=== PATIENT | female | born 1955 | race Caucasian/White ===

== ENCOUNTER 2022-05-06 01:21 | Day surgery (SDC) | payer MEDICARE, OTHER, SELFPAY ==
[2022-04-17 11:50] VITALS: BMI 29.2
--- NOTE | 2022-04-21 11:38 | PC.NURSE ---
Pt. cardiac and cva history reviewed with Dr. Cedillo, anesthesia. No orders received.
--- NOTE | 2022-04-21 14:38 | PM.HPGS ---
History of Present Illness History of Present Illness Consent: Risks, benefits, and alternatives have been discussed and questions answered. Patient agrees to proceed with procedure. Chief complaint: duodenal ulcer, ulcerative colitis,rectal bleeding Narrative: Hawk Hagen is a 66 year old female who was referred by her PCP for ulcerative colitis. She has past medical history of stroke, cholecystectomy, diabetes, coronary artery disease, anxiety, hypothyroidism, iron deficiency anemia, cardiac defibrillator, hypertension, and hyperlipidemia.? She was previously seeing a GI physician in [place] for ulcerative colitis-Not currently on any treatment-Not clear how long she has not been on treatement. ? Last colonoscopy was 6 years ago.? Previous records in our EMR with an colonoscopy in 2010 with evidence of distal ulcerative colitis in the proximal rectal sigmoid region and biopsies noted diffuse chronic active proctocolitis with crypt abscesses are mildly to moderately active consistent with ulcerative colitis ( at that time started on Canasa and Liada 2.4 G daily . EGD in [address] Humphries with duodenal ulcerations and distal esophageal erosive change suggesting acid and peptic ulcer disease-No bx to review although (recs reviewed). She reports that she is having bright red blood per rectum 3-4 times for me week on the tissue with wiping.? She typically does not have diarrhea except last week which has since resolved and now she has constipation with hard stools.? She denies any abdominal pain or melena.? She denies any nausea, vomiting, dysphagia, odynophagia or GERD.? She states she has lost 20 lb in the last 6 months.? She states she was hospitalized at [facility] last week because she you needed a blood transfusion and got 4 units of blood.? 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 Review of Systems Review of Systems: All systems reviewed & are unremarkable except as noted in HPI and below PMFSH Past Medical History Medical History CHF (congestive heart failure) Family History Family History (System 01/08/21 @ 14:01 by Edward José) Father Family history of heart disease in male family member before age 55 Mother Family history of heart disease in male family member before age 55 Other Diabetes mellitus Family history of cardiovascular disease Hypertension Social History Social History (Updated 04/01/22 @ 11:42 by Leanna Du MA) Smoking packs per day: 1 Smoking cigarettes per day: 20.0 Years smoked: 20 Smoking pack-years: 20.00 Smoking status: Former smoker Tobacco type: cigarettes Second hand tobacco smoke exposure: No Alcohol intake: former Substance use: never Substance use type: does not use Living arrangements: with family Spiritual care concerns: No Meds Home Medications and Allergies Home Medications Medication Instructions Recorded Confirmed Type acetaminophen 500 mg capsule 500 mg PO Q6H PRN Pain 04/01/22 04/17/22 History amiodarone 200 mg tablet (Pacerone) 200 mg PO BID 04/01/22 04/17/22 History levothyroxine 100 mcg tablet 100 mcg PO DAILY 04/01/22 04/17/22 History (Euthyrox) metoprolol succinate 25 mg 25 mg PO BID 04/01/22 04/17/22 History tablet,extended release 24 hr sacubitril 24 mg-valsartan 26 mg 1 tablet PO BID 04/01/22 04/17/22 History tablet Allergies Allergy/AdvReac Type Severity Reaction Status Date / Time No Known Drug Allergies Allergy Unknown Unknown Unverified 04/01/22 11:38 codeine AdvReac Intermediate Nausea and Verified 04/17/22 11:54 Vomiting Exam Const: General: alert Orientation/consciousness: patient oriented x3 Resp: Auscultation: clear to auscultation bilaterally Cardio: Rhythm: regular rhythm GI: GI Palp: Yes Soft to palpation and No Tenderness
--- NOTE | 2022-05-06 07:27 | PM.HPGS ---
History of Present Illness History of Present Illness Consent: Risks, benefits, and alternatives have been discussed and questions answered. Patient agrees to proceed with procedure. Chief complaint: duodenal ulcer, ulcerative colitis,rectal bleeding Narrative: Hawk Hagen is a 66 year old female Who was hospitalized last month with severe anemia and rectal bleeding. She received 4 units of blood. Recent hemoglobin was is 6.8 and serum iron is very low at 7 with 2% saturation. When she was hospitalized, she apparently declined gastrointestinal investigation. She does have a history of ulcerative colitis in the past but is not on any medication for that in the present time she had been on Eliquis. There is also apparently history of a duodenal ulcer. She has history of having a stroke. She denies abdominal pain. Because of her stroke she has difficulty recalling some events. He does know however that her stools had been loose prior to her heart surgery 13 years ago. She was on medication for that which she has stopped. Now her bowel movements are formed Review of Systems Review of Systems: All systems reviewed & are unremarkable except as noted in HPI and below PMFSH Past Medical History Medical History CHF (congestive heart failure) Family History Family History Father Family history of heart disease in male family member before age 55 Mother Family history of heart disease in male family member before age 55 Other Diabetes mellitus Family history of cardiovascular disease Hypertension Social History Social History Smoking packs per day: 1 Smoking cigarettes per day: 20.0 Years smoked: 20 Smoking pack-years: 20.00 Smoking status: Former smoker Tobacco type: cigarettes Second hand tobacco smoke exposure: No Alcohol intake: former Substance use: never Substance use type: does not use Living arrangements: with family Spiritual care concerns: No Meds Home Medications and Allergies Home Medications Medication Instructions Recorded Confirmed Type acetaminophen 500 mg capsule 500 mg PO Q6H PRN Pain 04/01/22 04/17/22 History amiodarone 200 mg tablet (Pacerone) 200 mg PO BID 04/01/22 04/17/22 History levothyroxine 100 mcg tablet 100 mcg PO DAILY 04/01/22 04/17/22 History (Euthyrox) metoprolol succinate 25 mg 25 mg PO BID 04/01/22 04/17/22 History tablet,extended release 24 hr sacubitril 24 mg-valsartan 26 mg 1 tablet PO BID 04/01/22 04/17/22 History tablet peg 3350-electrolytes 236 240 ml PO Q10M #4,000 mL 04/23/22 Rx gram-22.74 gram-6.74 gram-5.86 gram solution (Golytely) Allergies Allergy/AdvReac Type Severity Reaction Status Date / Time codeine AdvReac Intermediate Nausea and Verified 05/06/22 08:05 Vomiting Exam Const: General: alert Orientation/consciousness: patient oriented x3 Resp: Auscultation: clear to auscultation bilaterally Cardio: Rhythm: regular rhythm GI: GI Palp: Yes Soft to palpation and No Tenderness to palpation present (GI) Neuro: General: patient oriented x3 Assessment and Plan Assessment and plan (1) Blood in stool: Code(s): K92.1 - Melena Status: Acute Assessment and Plan: EGD with possible biopsy or dilatation or cautery.Colonoscopy with possible biopsy or polypectomy or cautery or injection of substances.
[2022-05-06 07:51] VITALS: BP 128/73; PULSE 62; RESP 20; TEMP 36.5; O2SAT 99; BMI 27.3
[2022-05-06] MEDS: LACTATED RINGERS 1,000 ML 150 ML IV CONT (08:13)
[2022-05-06] MEDS: SIMETHICONE ORAL SUSPENSION 20 MG/0.3 ML 30 ML BOTTLE 0.6 ML IRRIGATION (10:02)
[2022-05-06 10:20] VITALS: BP 109/68; PULSE 77; RESP 16; O2SAT 100
[2022-05-06 10:30] VITALS: BP 108/69; PULSE 94; RESP 17; O2SAT 100
[2022-05-06 10:40] VITALS: BP 111/67; PULSE 70; RESP 18; O2SAT 99
--- NOTE | 2022-05-06 11:10 | SUR.OPER ---
EGD END 948 COLON START 957
== END 2022-05-06 10:56 | disposition home or self-care (01) ==
PROVIDERS: PCP Physician Assistant; Visit Provider Internal Medicine Gastroenterology
PROC: 0DJ08ZZ Inspection of Upper Intestinal Tract, Via Natural or Artificial Opening Endoscopic (ICD-10-PCS; CPT 43235; principal; 2022-05-06 09:15)
DX: D50.0 Iron deficiency anemia secondary to blood loss (chronic) (principal); K92.1 Melena; K57.30 Diverticulosis of large intestine without perforation or abscess without bleeding; K63.5 Polyp of colon; Z79.01 Long term (current) use of anticoagulants; Z87.19 Personal history of other diseases of the digestive system; I50.9 Heart failure, unspecified; Z86.73 Personal history of transient ischemic attack (TIA), and cerebral infarction without residual deficits; Z87.891 Personal history of nicotine dependence
CPT/HCPCS: 45385; 45380; 45381; 88305; J2704; J7120

== ENCOUNTER 2022-06-04 12:08 | Outpatient (CLI) | payer MEDICARE, OTHER, SELFPAY ==
[2022-06-04 12:34] LABS: Basophils Absolute Auto 0.1 K/mm3 (0.0-0.1); Basophils Percent Auto 0.8 % (0.2-1.2); Eosinophils Absolute Auto 0.1 K/mm3 (0-0.3); Eosinophils Percent Auto 1.6 % (0-4.4); Hematocrit 31.8 % (37.0-47.0); Hemoglobin 9.3 g/dL (12.0-15.0); Immature Granulocyte Absolute 0.02 K/mm3 (0.00-0.031); Immature Granulocyte Percent A 0.2 % (0-0.5); Lymphocytes Absolute Auto 1.39 K/mm3 (0.9-3.2); Lymphocytes Percent Auto 15.9 % (18.3-44.2); Mean Corpuscular HGB Conc 29.2 g/dl (32-36); Mean Corpuscular Hemoglobin 23.4 pg (26-34); Mean Corpuscular Volume 79.9 fl (80-100); Mean Platelet Volume 9.7 fl (7.4-10.4); Monocytes Absolute Auto 0.7 K/mm3 (0.1-0.6); Monocytes Percent Auto 7.6 % (2.6-8.5); Neutrophils Absolute Auto 6.5 K/mm3 (1.3-6.7); Neutrophils Percent Auto 73.9 % (45.5-73.1); Platelet Count Result 331 k/mm3 (150-375); Red Blood Count 3.98 M/mm3 (4.2-5.4); Red Cell Distribution Width 16.3 % (11.5-14.5); White Blood Count 8.8 K/mm3 (4.5-10.0)
[2022-06-04 12:43] LABS: Anion Gap 9 mmol/L (8-16); Blood Urea Nitrogen 20 mg/dL (7-17); Calcium 9.2 mg/dL (8.4-10.2); Carbon Dioxide 23 mmol/L (22-30); Chloride 103 mmol/L (98-107); Estimated Glomerular Filt Rate 56; Glucose 83 mg/dL (65-110); Potassium 4.1 mmol/L (3.4-5.0); Sodium 135 mmol/L (137-145)
[2022-06-04 13:04] LABS: Anisocytosis 1+ (NORMAL); Hypochromasia 1+ (NORMAL); Platelet Estimate Adequate (Adequate); Poikilocytosis 1+ (NORMAL)
[2022-06-04 13:05] LABS: Ovalocytes 1+ (NORMAL)
== END 2022-06-04 12:09 | disposition home or self-care (01) ==
LOC: ANHLAB 12:13
PROVIDERS: PCP Physician Assistant; Visit Provider Surgery
DX: K62.5 Hemorrhage of anus and rectum (principal)
CPT/HCPCS: 36415; 80048; 85025

== ENCOUNTER 2022-06-25 08:19 | Outpatient (CLI) | payer MEDICARE, OTHER, SELFPAY ==
[2022-06-25 08:46] LABS: Basophils Absolute Auto 0.1 K/mm3 (0.0-0.1); Eosinophils Absolute Auto 0.2 K/mm3 (0-0.3); Eosinophils Percent Auto 2.3 % (0-4.4); Hemoglobin 8.5 g/dL (12.0-15.0); Immature Granulocyte Absolute 0.03 K/mm3 (0.00-0.031); Immature Granulocyte Percent A 0.3 % (0-0.5); Lymphocytes Absolute Auto 1.17 K/mm3 (0.9-3.2); Lymphocytes Percent Auto 13.3 % (18.3-44.2); Mean Corpuscular HGB Conc 28.3 g/dl (32-36); Mean Corpuscular Hemoglobin 22.3 pg (26-34); Mean Corpuscular Volume 78.5 fl (80-100); Mean Platelet Volume 9.6 fl (7.4-10.4); Monocytes Absolute Auto 0.7 K/mm3 (0.1-0.6); Monocytes Percent Auto 7.9 % (2.6-8.5); Neutrophils Absolute Auto 6.6 K/mm3 (1.3-6.7); Neutrophils Percent Auto 75.2 % (45.5-73.1); Platelet Count Result 317 k/mm3 (150-375); Red Blood Count 3.82 M/mm3 (4.2-5.4); Red Cell Distribution Width 16.5 % (11.5-14.5); White Blood Count 8.8 K/mm3 (4.5-10.0)
[2022-06-25 09:33] LABS: Anisocytosis 1+ (NORMAL); Platelet Estimate Adequate (Adequate)
[2022-06-25 09:34] LABS: Poikilocytosis 1+ (NORMAL); Schistocytes None Seen (NORMAL)
== END 2022-06-25 08:20 | disposition home or self-care (01) ==
LOC: ANHLAB 08:29
PROVIDERS: PCP Physician Assistant; Visit Provider Surgery
DX: K62.5 Hemorrhage of anus and rectum (principal)
CPT/HCPCS: 36415; 85025

== ENCOUNTER 2022-07-28 10:02 | Outpatient (CLI) | payer MEDICARE, OTHER, SELFPAY ==
--- NOTE | ~2022-07-28 | XR_ITS ---
EXAMINATION: XR chest 2V DATE: 07/28/2022 11:57 INDICATION: Hemorrhage of the anus and rectum. TECHNIQUE: Frontal and lateral views of the chest were obtained. COMPARISON: None. FINDINGS: There is no pneumonia, pleural effusion, or pneumothorax. Cardiomegaly is noted. Median byron rnotomy wires are noted. There is a left chest pacer/defibrillator with leads in right atrium and rig ht ventricle. There is a 6 mm foreign body in left anterior chest wall. IMPRESSION: 1. Cardiomegaly. Reviewed, dictated and finalized at location A. IMPRESSION: 1. Cardiomegaly.
--- NOTE | 2022-07-28 11:17 | ECG_ITS ---
Measurements Intervals [place] Rate: 74 P: 252 HI: 261 QRS: -83 QRSD: 174 T: 80 QT: 493 QTc: 549 Interpretive Statements ELECTRONIC ATRIAL PACEMAKER ELECTRONIC VENTRICULAR PACEMAKER VENTRICULAR PREMATURE COMPLEX BASELINE ARTIFACT- I, II, III, AVR, AVL, AVF, V1-V2 NO FURTHER INTERPRETATION IS POSSIBLE ATYPICAL ECG NO PREVIOUS ECG AVAILABLE FOR COMPARISON Electronically Signed On 07-28-2022 11:47:56 CDT by Chintan Vasquez D.O.
[2022-07-28 12:34] LABS: Basophils Absolute Auto 0.1 K/mm3 (0.0-0.1); Basophils Percent Auto 0.8 % (0.2-1.2); Eosinophils Absolute Auto 0.1 K/mm3 (0-0.3); Eosinophils Percent Auto 1.1 % (0-4.4); Hematocrit 27.3 % (37.0-47.0); Hemoglobin 7.3 g/dL (12.0-15.0); Immature Granulocyte Absolute 0.03 K/mm3 (0.00-0.031); Immature Granulocyte Percent A 0.3 % (0-0.5); Lymphocytes Absolute Auto 1.32 K/mm3 (0.9-3.2); Lymphocytes Percent Auto 13.1 % (18.3-44.2); Mean Corpuscular HGB Conc 26.7 g/dl (32-36); Mean Corpuscular Hemoglobin 19.5 pg (26-34); Mean Corpuscular Volume 72.8 fl (80-100); Mean Platelet Volume 10.2 fl (7.4-10.4); Monocytes Absolute Auto 0.9 K/mm3 (0.1-0.6); Monocytes Percent Auto 8.8 % (2.6-8.5); Neutrophils Absolute Auto 7.6 K/mm3 (1.3-6.7); Neutrophils Percent Auto 75.9 % (45.5-73.1); Platelet Count Result 353 k/mm3 (150-375); Red Blood Count 3.75 M/mm3 (4.2-5.4); Red Cell Distribution Width 17.1 % (11.5-14.5); White Blood Count 10.1 K/mm3 (4.5-10.0)
[2022-07-28 12:46] LABS: Anion Gap 10 mmol/L (8-16); Blood Urea Nitrogen 17 mg/dL (7-17); Calcium 8.4 mg/dL (8.4-10.2); Carbon Dioxide 21 mmol/L (22-30); Chloride 107 mmol/L (98-107); Estimated Glomerular Filt Rate 56; Glucose 77 mg/dL (65-110); Potassium 4.3 mmol/L (3.4-5.0); Sodium 138 mmol/L (137-145)
[2022-07-28 12:50] LABS: INR 1.6
[2022-07-28 12:51] LABS: Partial Thromboplastin Time 30.1 SECONDS (22.3-36.8)
[2022-07-28 13:54] LABS: Platelet Estimate Adequate (Adequate)
[2022-07-28 13:55] LABS: Hypochromasia 1+ (NORMAL); Ovalocytes 1+ (NORMAL)
[2022-07-28 13:56] LABS: Anisocytosis 2+ (NORMAL); Schistocytes None Seen (NORMAL)
== END 2022-07-28 10:03 | disposition home or self-care (01) ==
PROVIDERS: PCP Physician Assistant; Visit Provider Surgery
DX: K62.5 Hemorrhage of anus and rectum (principal); I51.7 Cardiomegaly
CPT/HCPCS: 36415; 71046; 80048; 85025; 85610; 85730; 86850; 86900; 86901; 86920; 93005

== ENCOUNTER 2022-08-07 20:57 | Inpatient (IN) | payer MEDICARE, OTHER, SELFPAY ==
--- NOTE | 2022-07-28 10:10 | PC.NURSE ---
Addendum entered by Elma Saldana RN 07/28/22 10:42: BOWEL PREP PER DR MAGANA. ENSURE BUNDLE PER DR MAGANA- PT PICKING UP FROM OFFICE. Original Note: Report to the Outpatient Waiting Room, entrance under the green pavilion located off [facility], at time _6:00AM on date __08/07/22 . Planned Procedure Time: __7:30AM . Time changes happen often and if your time is changed the preop area will call you the afternoon before. - You and your visitor will be asked to self-screen and do not enter if you have any COVID symptoms. - We encourage only one visitor and NO visitors under age 16 are allowed at this time. Your visitor will receive communication by the phone number that is given day of service. - The patient visitor is requested to social distance or may leave the building when not with patient due to restrictions. - A mask is required within the hospital. Patients may have clear liquids (water, carbonated beverages, clear teas, apple juice) until 3 hours prior to surgery with a maximum of 20 ounces. - No food from midnight until time of surgery Take the following medications with a SIP of water the morning of surgery: ___AMIODARONE, LEVOTHYROXINE, METOPROLOL Medications to discontinue per physician ___HOLD ELIQUIS 2 DAYS PRE-OP- LAST DOSE 08/04/22 *TAKE PRE-OP ANTIBIOTICS ON 08/06/22 DIRECTED ON BOTTLE- CIPRO AND ERYTHROMYCIN Please no make-up, nail belgian, hairspray, perfume, deodorant, or body powder the day of surgery. No jewelry (including any body piercings) or valuables the day of surgery, leave them at home. Please take a shower or bath the night before, or the morning of, surgery with an antibacterial soap. Wear comfortable, loose fitting clothing. Children are encouraged to wear pajamas. - Jewelry must be removed prior to entering the operating room. Rings and piercings that are not removed may be cut off. - The hospital will not accept responsibility for valuables. - Please leave all valuables, including medications, at home the day of surgery. If you are going home after surgery, a licensed concrete mixer truck driver must drive you home. - NO public transportation without another adult. - We recommend that an adult stay with you for 24 hours following discharge. - We also recommend that you do not drive, make important decision, drink alcoholic beverages, or take any drugs that were not prescribed by your health care provider for at least 24 hours after your discharge time. Follow any additional instructions given to you from your surgeon. If you or anyone in your household have experienced Covid symptoms in the past week, please notify your surgeon or the nurse liaison at the phone number below for possible testing. Telephone instructions given to _PATIENT and asked if any additional questions and then verbalized understanding. Patient advised to call surgeon office or pre surgery nurse liaison [phone] if any additional questions.
[2022-07-28 10:21] VITALS: BP 122/66; PULSE 72; RESP 16; TEMP 36.6; O2SAT 99; BMI 30.2
--- NOTE | 2022-08-04 17:57 | PM.IMHP ---
H&P: HPI History of Present Illness Date/Time: 08/04/22 17:57 Chief Complaint: Rectal bleeding, iron deficiency anemia Narrative: patient is a 66-year-old woman who has had persistent rectal bleeding with iron deficiency anemia and has had transfusions in the past for this. She has a remote history of being diagnosed of ulcerative colitis back on colonoscopy in 2010. However she has not been on any medication for this in several years. The patient was very anemic in her primary care physician's office last March and was admitted to [facility] in [place] where she received 4 units of packed red cells. Also in March, she fell and fractured the surgical neck of her right humerus. She had a colonoscopy here with Dr. Dhaliwal on May 06. Multiple ulcerated polyps were seen in the sigmoid colon which seemed to be the source of her bleeding. These were biopsied and did not show evidence of ulcerative colitis or adenomatous polyps. I spoke with Dr. Dhaliwal regarding this colonoscopy and it is his feeling that the persistent rectal bleeding is from the sigmoid colon. The patient does take Eliquis and amiodarone for atrial fibrillation. She saw her manager pathology Dr. Seals who felt she was satisfactory risk for surgery. Patient also has history of cardiomyopathy and has had previous heart surgery. She continues to have rectal bleeding and anemia. She is taken to surgery now for hand access laparoscopic sigmoidectomy with anastomosis. Review of Systems Review of Systems: All systems reviewed & are unremarkable except as noted in HPI and below ( HPI and those items noted below) Constitutional: Constitutional: Denies chills and Denies fever(s) Cardiovascular: Cardiovascular: Reports as per HPI, Denies chest pain, Denies diaphoresis, Reports irregular heart rhythm, Denies dyspnea and Denies paroxysmal nocturnal dyspnea Respiratory: Respiratory: Denies chest congestion, Denies cough and Denies dyspnea Gastrointestinal: Gastrointestinal: Reports as per HPI and Reports hematochezia Musculoskeletal: Musculoskeletal: Reports stiffness ( right arm and shoulder, history fracture surgical neck of the humerus) Integumentary/Breasts: Skin/Breast: Denies lesions and Denies rash Neurologic: Reports as per HPI Hematologic/Lymphatic: Hematologic/Lymphatic: Reports as per HPI ( takes Eliquis which has been stopped for surgery) and Reports easy bruising PMFSH Past Medical History Medical History CHF (congestive heart failure) COPD (chronic obstructive pulmonary disease) Diabetes Heart attack History of blood clot in brain History of blood transfusion Stroke Surgical History Surgical History History of cholecystectomy History of open heart surgery Family History Family History Father Family history of heart disease in male family member before age 55 Mother Family history of heart disease in male family member before age 55 Other Diabetes mellitus Family history of cardiovascular disease Hypertension Social History Social History Social History: daily caffeine intake- 1c tea/ 2 sodas Smoking packs per day: 1 Smoking cigarettes per day: 20.0 Years smoked: 30 Smoking pack-years: 30.00 Smoking status: Former smoker Tobacco type: cigarettes Second hand tobacco smoke exposure: No Smoking end date: 03/27/07 Alcohol intake: never Substance use: never Substance use type: does not use Additional living arrangements comments: [facility] Gender identity (if verbalized by the patient): Female Sexual Orientation (if Verbalized by the Patient): Straight or Heterosexual Spiritual care concerns: No Meds Home Medications and Allergies Home Medications Medication Instructions
[2022-08-07] VITALS (36 sets, daily range): BP systolic 87–137; BP diastolic 50–78; PULSE 70–99; RESP 10–34; TEMP 35.7–36.8; O2SAT 92–100; BMI 32.5
--- NOTE | ~2022-08-07 | XR_ITS ---
EXAMINATION: XR chest port-a-cath/central INDICATION: Central line placement TECHNIQUE: Portable AP chest at 1023 hours COMPARISON: 07/28/2022 FINDINGS: A right internal jugular central venous catheter ends with its tip in the midsuperior vena cava. Cardiomegaly is noted. There is a mild diffuse interstitial pattern. No pleural effusion or pne umothorax. A dual-lead cardiac pacemaker of the left chest wall ends with leads in expected locations . IMPRESSION: 1. Cardiomegaly with mild pulmonary edema. 2. Right internal jugular central venous catheter inserted, no pneumothorax. Reviewed, dictated and finalized at location B. DYEING VAT TENDER
[2022-08-07] MEDS: LACTATED RINGERS 1,000 ML 30 ML IV CONT ×3 (06:45→19:03)
[2022-08-07] MEDS: ACETAMINOPHEN 500 MG TABLET 1000 MG PO (06:49)
[2022-08-07] MEDS: ALVIMOPAN 12 MG CAPSULE PO (06:49)
--- NOTE | 2022-08-07 07:01 | WPDHPUPDATE1 ---
History and Physical Update Update Date/Time: 08/07/22 07:01 History and Physical has been reviewed, including an updated exam of the patient. There are NO changes in the patient's condition. Risks, benefits, and alternatives have been discussed and questions answered. Patient agrees to proceed with procedure.
[2022-08-07] MEDS: KETOROLAC 15 MG/ML VIAL (*BKC) IV PUSH (07:10)
[2022-08-07 07:24] LABS: Hematocrit 26.6 % (37.0-47.0); Hemoglobin 7.2 g/dL (12.0-15.0); Mean Corpuscular HGB Conc 27.1 g/dl (32-36); Mean Corpuscular Hemoglobin 18.9 pg (26-34); Mean Corpuscular Volume 69.8 fl (80-100); Mean Platelet Volume 9.9 fl (7.4-10.4); Platelet Count Result 349 k/mm3 (150-375); Red Blood Count 3.81 M/mm3 (4.2-5.4); Red Cell Distribution Width 17.6 % (11.5-14.5); White Blood Count 8.7 K/mm3 (4.5-10.0)
[2022-08-07 07:30] LABS: Glucose Point of Care 88 mg/dl (65-105)
[2022-08-07 07:35] LABS: INR 1.5; Prothrombin Time 17.1 Seconds (11.1-14.7)
--- NOTE | 2022-08-07 07:51 | WPDANESEPPF ---
Anes - Initial Pre Proc Eval Procedure: Operation Date: 08/07/22 07:30 Proposed Procedures p Hand Assisted Laparoscopic Sigmoidectomy - Peng Abrams MD Date/Time: 08/07/22 07:51 Surgeon: Peng Abrams MD Pre Op Diagnosis: rectal bleeding Patient Data Age: 66 Gender: F Height: 1.57 m Weight: 72.3 kg Last Vital Signs Temp 36.8 C 08/07/22 07:15 Pulse 99 08/07/22 07:15 Resp 16 08/07/22 07:15 BP 126/68 08/07/22 07:15 Pulse Ox 100 08/07/22 07:15 O2 Del Method Room Air 08/07/22 07:15 Allergies Allergy/AdvReac Type Severity Reaction Status Date / Time codeine AdvReac Intermediate Nausea and Verified 08/07/22 07:41 Vomiting Home Medications Medication Instructions Recorded Confirmed Type amiodarone 200 mg tablet (Pacerone) 200 mg PO BID 04/01/22 08/07/22 History levothyroxine 100 mcg tablet 100 mcg PO DAILY 04/01/22 08/07/22 History (Euthyrox) metoprolol succinate 25 mg 25 mg PO BID 04/01/22 08/07/22 History tablet,extended release 24 hr apixaban 5 mg tablet (Eliquis) 5 mg PO BID 05/12/22 08/07/22 History sacubitril 24 mg-valsartan 26 mg 1 tablet PO BID 05/12/22 08/07/22 History tablet (Entresto) erythromycin 500 mg tablet 1,000 mg PO .COMPLEX #6 tabs 07/01/22 08/07/22 Rx ciprofloxacin HCl 500 mg tablet 500 mg PO .COMPLEX #2 tabs 07/23/22 08/07/22 Rx Laboratory Tests 08/07/22 08/07/22 08/07/22 07:13 07:13 07:27 WBC 8.7 K/mm3 K/mm3 (4.5-10.0) RBC 3.81 M/mm3 L M/mm3 (4.2-5.4) Hgb 7.2 g/dL L g/dL (12.0-15.0) Hct 26.6 % L % (37.0-47.0) MCV 69.8 fl L fl (80-100) MCH 18.9 pg L pg (26-34) MCHC 27.1 g/dl L g/dl (32-36) RDW 17.6 % H % (11.5-14.5) Plt Count 349 k/mm3 k/mm3 (150-375) MPV 9.9 fl fl (7.4-10.4) PT 17.1 Seconds H Seconds (11.1-14.7) INR 1.5 POC Capillary Glucose 88 mg/dl mg/dl (65-105) Patient hx anesthesia problems: none Family hx anesthesia problems: none Results Review: All pre-operative results and documents have been reviewed as part of the pre-operative evaluation. [facility] Past Medical History Medical History CHF (congestive heart failure) COPD (chronic obstructive pulmonary disease) Diabetes Heart attack History of blood clot in brain History of blood transfusion Stroke Surgical History Surgical History History of cholecystectomy History of open heart surgery Family History Family History Father Family history of heart disease in male family member before age 55 Mother Family history of heart disease in male family member before age 55 Other Diabetes mellitus Family history of cardiovascular disease Hypertension Social History Social History Social History: daily caffeine intake- 1c tea/ 2 sodas Smoking packs per day: 1 Smoking cigarettes per day: 20.0 Years smoked: 20 Smoking pack-years: 20.00 Smoking status: Former smoker Tobacco type: cigarettes Second hand tobacco smoke exposure: No Smoking end date: 03/27/07 Alcohol intake: never Substance use: never Substance use type: does not use Living arrangements: with family Additional living arrangements comments: Patient is and has 4 adult female children. Gender identity (if verbalized by the patient): Female Sexual Orientation (if Verbalized by the Patient): Straight or Heterosexual Spiritual care concerns: No Comments EF 50% will tx 2 units prbcs during case Anes - Eval Final PreProcedure Day of Procedure 08/07/22 07:51 Patient weight: overweight Heart: regular rate and rhythm Lungs: decreased breath sounds Airway: Mallampati scale c
[2022-08-07] MEDS: ceFAZolin 2 GM/D5W 50 ML 2 GM/50 ML BAG IVPB ×2 (07:57→15:22)
[2022-08-07] MEDS: metroNIDAZOLE 500 MG/ISO 100ML 500 MG/100 ML BAG 100 MG IVPB ×2 (09:10→15:01)
[2022-08-07 10:21] LABS: Glucose Point of Care 152 mg/dl (65-105)
--- NOTE | 2022-08-07 10:52 | SUR.PHASEI ---
1003- Patient arrived to PACU with right radial arterial line. line was assessed and zeroed. small amount of swelling noted to art line site- stable per Sep. dampened wave form, blood return noted.
[2022-08-07 10:59] LABS: Hematocrit 33.2 % (37.0-47.0); Hemoglobin 9.8 g/dL (12.0-15.0)
--- NOTE | 2022-08-07 12:14 | PM.PNGS ---
Progress Note: A&P Assessment and Plan (1) Hypovolemia dehydration: Code(s): E86.1 - Hypovolemia Status: Acute Assessment and Plan: Patient has been observed now for over 2 hours in recovery. 1/3 unit of packed cells has been administered. I have spoken with her , Brennan, a couple of different times. I conferred with Department of Anesthesiology. It seems that her earlier problems with hypotension were due to hypovolemia and anemia. She has responded well to fluids and now 3 units of packed cells. Having had a bowel prep and having invasive monitoring in place, I feel it is best to go ahead with her surgery today as she will have continued bleeding if we do not proceed. I discussed this with her and with the patient. Will plan to proceed this afternoon with hand access laparoscopic sigmoidectomy as discussed in the office. (2) Iron deficiency anemia due to chronic blood loss: Code(s): D50.0 - Iron deficiency anemia secondary to blood loss (chronic) Status: Chronic Assessment and Plan: See above. H&H improved to 9.8 and 33.2 after 2 units packed cells. Blood pressure still right about 100. We will go ahead and give 1/3 unit of blood and then proceed with surgery as noted above. (3) Cardiomyopathy: Code(s): I42.9 - Cardiomyopathy, unspecified Status: Chronic Assessment and Plan: Certainly contributing to the blood pressure problems noted above. Last cardiac echo showed ejection fraction of 50%. (4) Rectal bleeding: Code(s): K62.5 - Hemorrhage of anus and rectum Status: Chronic Assessment and Plan: Continues to have bleeding which is, by colonoscopy, due to inflammatory sigmoid polyps. 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 Subjective Subjective Date/Time Seen: 08/07/22 12:14 Interval history: Patient was taken to surgery this morning as planned. However with the induction of anesthesia, she became hypotensive and required vasopressor of agents as well as fluids. She was known to be anemic and to have had previous heart surgery as well as an AICD device. She was transfused 2 units of packed cells and given additional fluids. Central line and arterial line were placed by the Department of Anesthesia. The surgery was canceled as initially it was unclear if the blood pressure related problems were all hypovolemia or were more cardiac in origin. Exam Narrative: Patient seen and examined awake and conversant in the recovery room Const: General: comfortable, no acute distress and other (Blood pressure stable by our line and cuff) Orientation/consciousness: patient oriented x3 Cardio: Jugular venous distension: no JVD Rate: regular rate Rhythm: regular rhythm GI: GI Palp: Yes Soft to palpation and No Tenderness to palpation present (GI) Objective Data Vital Signs Vital Signs: Vital Signs - 24 hr 08/07/22 07:15 08/07/22 10:03 08/07/22 10:15 Temperature 36.8 C 35.7 C L Pulse Rate 99 73 74 Respiratory Rate 16 24 H 20 Blood Pressure 126/68 94/69 L 87/50 L Pulse Oximetry 100 95 97 Oxygen Delivery Room Air Simple Face Mask Simple Face Mask Oxygen Flow Rate 10 10 08/07/22 10:30 08/07/22 10:45 08/07/22 11:00 Temperature 35.9 C L 36.4 C L Pulse Rate 75 74 72 Respiratory Rate 34 H 16 20 Blood Pressure 95/54 L 89/51 L 90/51 L Pulse Oximetry 92 96 97 Oxygen Delivery Simple Face Mask Simple Face Mask Simple Face Mask Oxygen Flow Rate 10 10 10 08/07/22 11:15 08/07/22 11:30 08/07/22 11:45 Temperature 36.1 C L Pulse Rate 73 73 79 Respiratory Rate 14 30 H 18 Blood Pressure 94/52 L 102/55 L 96/53 L Pulse Oximetry 99 99 100 Oxygen Delivery Simple Face Mask Simple Face Mask Simple Face Mask Oxygen Flow Rate 10 10 10 08/07/22 12:00 08/07/22 12:00 T
[2022-08-07] MEDS: SODIUM CHLORIDE 0.9% IV 250 ML 30 ML IV CONT (13:13)
--- NOTE | 2022-08-07 14:59 | WPDHPUPDATE1 ---
History and Physical Update Update Date/Time: 08/07/22 14:59 History and Physical has been reviewed, including an updated exam of the patient. There are NO changes in the patient's condition. Risks, benefits, and alternatives have been discussed and questions answered. Patient agrees to proceed with procedure.
--- NOTE | 2022-08-07 15:04 | SUR.PHASEI ---
Patient taken back to OR by ANA Bower and Dr. Phelps at 1502.
--- NOTE | 2022-08-07 15:45 | P.PCNANE_ITS ---
Arterial Cath Proc Note Consent: I have discussed with the patient/family/POA, the non-emergent placement of an arterial catheter, including its clinical necessity/indication and associated potential risks and complications. The patient/family/POA and/or understand(s) and acknowledge(s) the need to proceed with the arterial catheter insertion as an important element of the patient's clinical management. Given emergent patient conditions, temporal constraints may have precluded informed consent. Time-Out: A pre-procedural Time-Out was completed immediately before starting the procedure and confirmed: Patient Identification, Site, Procedure, Patient Position and the Availability of Requisite Equipment. Procedure Note Problems: hypotension hypovolemia Patient position: supine Insertion site: right radial Method of insertion: ultrasound-guided Food Safety Officer prep: sterile gloves, sterile gown, mask and hat Site prep: chlorahexadine Skin anesthesia: general anesthesia Gauge: 20 gauge Length (cm): 4.4 cm Closure/Dressing: antimicrobial disc and tegaderm Complications: None immediately noted/suspected. Late entry.
--- NOTE | 2022-08-07 15:48 | WPDANESCVCPN ---
Anes - Cent Venous Cath Note Consent: I have discussed with the patient/family/POA, the non-emergent placement of a central venous catheter, including its clinical necessity/indication and associated potential risks and complications. The patient/family/POA understand(s) and acknowledge(s) the need to proceed with central venous catheter insertion as an important element of the patient's clinical management given emergent patient conditions, temporal constraints may have precluded informed consent. Time-Out: A pre-procedural Time-Out was completed immediately before starting the procedure and confirmed: Patient Identification, Site, Procedure, Patient Position and the Availability of Requisite Equipment. Procedure Note Clinical Indications: hypotension hypovolemia Patient position: trendelenburg Central venous catheter insertion site: right internal jugular CVC method of insertion: ultrasound-guided Hand hygiene/Aseptic technique: Hand hygiene procedures were performed. Aseptic technique was maintained throughout the procedure. Sterile barrier precautions: Maximal sterile barrier precautions, including use of a cap, mask, sterile gown, sterile gloves and a sterile full body drape. Site prep: chlorhexidine Skin anesthesia: placed under general anesthesia Spanish: 7 Lumen: 3 Length (cm): 20 cm Depth of insertion (cm): 15 Closure/Dressing: suture and tegaderm Complications: None immediately noted/suspected. Chest X Ray: Ordered/review to follow. Tip in Superior vena cava Procedure comments: late entry
[2022-08-07] MEDS: BUPIVACAINE/EPINEPHRINE 0.25% 50 ML VIAL INFILTRATE (18:35)
--- NOTE | 2022-08-07 19:08 | W.PM.PROC2 ---
Procedure Note - Detailed Date of Procedure 08/07/22 Pre-op Diagnosis rectal bleeding, inflammatory sigmoid polyps Post-op Diagnosis Same Procedure Performed Hand access laparoscopic sigmoidectomy, takedown splenic flexure Surgeon Peng Abrams MD Paid Internship Donnie MOORE, OSCAR De [facility]az Anesthesia General and Local (0.25% Marcaine with epinephrine) Indications Patient has had persistent rectal bleeding. She is on Eliquis for atrial fibrillation. She had a colonoscopy that showed inflammatory polyps in the sigmoid colon that appeared to be the source of the bleeding. She has a remote history of ulcerative colitis although has not been on medication in years. She has had to have transfusions due to her bleeding and is anemic at the time of surgery. She had to be resuscitated with 3 units packed cells and 3000 cc of IV fluid at an early attempt at surgery early today. She has been stabilized hemodynamically and is taken to surgery now for hand access laparoscopic sigmoidectomy. Findings The bowel had extensive fatty tissue around it particularly in the sigmoid and descending colon. There were 2 tattooed areas 1 in the sigmoid and 1 in the descending colon that had been left from colonoscopy marking the area of inflammatory polyps. Both of these areas were removed with the specimen. Anastomosis was left colon to upper rectum. Description of Procedure Patient was taken to surgery and induced into general anesthesia. The abdomen was prepped and draped. Edler catheter was in place. The hand access port incision was made 1st. The proposed incision was drawn on the skin in the lower abdominal midline. Local was infiltrated in the skin and the subcutaneous. Incision was made deepened through the subcutaneous. The midline fascia was opened and extended the length of the wound. We then entered the peritoneal cavity and distended this opening the length of the wound. The Mahamed wound guard was then placed. The GelPort was placed. A 10 11 port was placed in the left mid abdomen. We used this to insufflate. I then placed a 10 11 port in the mid abdomen above the umbilicus and a 12 mm port on the right mid abdomen. Patient was placed in Trendelenburg. She was in Darrell stirrups. The sigmoid colon was found. There was extensive fatty epiploica on the sigmoid and descending colon. The bowel between the epiploica appeared normal. There was also some studding of fat between the tenia on the anti mesenteric aspect of the colon. This did have an unusual appearance but the actual bowel did not have an abnormal texture or thickness. The rectum seemed to be spared from this. I initially divided the lateral peritoneal attachments to the sigmoid and then down to the upper rectum. Starting on the patient's left side I found the ureter and carefully avoided it. I then dissected on the right-sided mesentery just over the sacral promontory and dissected to the same area of upper rectum. I then proceeded retrograde on the sigmoid and descending colon mesentery. The inferior mesenteric artery was dissected. The LigaSure was used for dissection and for coagulation. The inferior mesenteric artery was divided using the LigaSure and this division was bloodless. I continued the division of the mesentery staying well away from the bowel to ensure an intact marginal artery. Having completed this, I then divided the lateral peritoneal attachments to the rest of the descending colon heading up to the splenic flexure. I then elevated the omentum anteriorly and cephalad. I carefully dissected the proximal descending colon and splenic flexure of the colon out from under the omentum. I then continued this dissection and freed the distal transverse colon from the omentum. The mesenteric division was continued up to the duodenum. This actually brought about plenty of mobilization of the descending colon and distal transverse colon. I did not divide the inferior mese
[2022-08-07 19:22] LABS: Hemoglobin 11.4 g/dL (12.0-15.0); Mean Corpuscular Hemoglobin 23.3 pg (26-34); Mean Corpuscular Volume 77.6 fl (80-100); Mean Platelet Volume 9.8 fl (7.4-10.4); Platelet Count Result 278 k/mm3 (150-375); Red Cell Distribution Width 20.2 % (11.5-14.5); White Blood Count 22.1 K/mm3 (4.5-10.0)
[2022-08-07 19:26] LABS: Glucose Point of Care 151 mg/dl (65-105)
[2022-08-07 19:37] LABS: Anion Gap 7 mmol/L (8-16); Blood Urea Nitrogen 15 mg/dL (7-17); Calcium 7.6 mg/dL (8.4-10.2); Carbon Dioxide 20 mmol/L (22-30); Chloride 108 mmol/L (98-107); Estimated CRCL calculation 51 ml/min; Estimated Glomerular Filt Rate > 60; Glucose 146 mg/dL (65-110); Potassium 4.2 mmol/L (3.4-5.0); Sodium 135 mmol/L (137-145)
[2022-08-07] MEDS: FUROSEMIDE INJ 40 MG/4 ML VIAL 10 MG IV PUSH (19:55)
--- NOTE | 2022-08-07 21:27 | ADMGEN ---
This patient, Hawk Hagen, was admitted to IMU Room 209-01 at 2115. Patient/family oriented to hospital policies and general routines including ID bracelet, bed and alarms, visiting hours, pain management, procedures, bathroom and other care routines, personal items, smoking policy, room service/diet, and visiting hours. Information on how to activate the Rapid Response Team has been discussed. Patient/Family are encouraged to report perceived risks to care and to ask questions if they do not understand what they are told or what they should do.
[2022-08-07] MEDS: FAMOTIDINE 20 MG/2 ML VIAL IV PUSH (23:23)
[2022-08-07] MEDS: LACTATED RINGERS 1,000 ML 80 ML IV CONT (23:23)
[2022-08-07] MEDS: ACETAMINOPHEN 500 MG TABLET PO (23:26)
[2022-08-08] VITALS (17 sets, daily range): BP systolic 93–115; BP diastolic 46–58; PULSE 70–90; RESP 12–20; TEMP 36.3–37.2; O2SAT 97–100
[2022-08-08] MEDS: LEVOTHYROXINE SODIUM 100 MCG TABLET PO (05:46)
[2022-08-08] MEDS: ACETAMINOPHEN 500 MG TABLET PO ×3 (05:48→20:58)
[2022-08-08 05:55] LABS: Hematocrit 33.9 % (37.0-47.0); Hemoglobin 10.4 g/dL (12.0-15.0); Mean Corpuscular HGB Conc 30.7 g/dl (32-36); Mean Corpuscular Hemoglobin 23.1 pg (26-34); Mean Corpuscular Volume 75.3 fl (80-100); Mean Platelet Volume 10.7 fl (7.4-10.4); Platelet Count Result 252 k/mm3 (150-375); Red Cell Distribution Width 20.3 % (11.5-14.5); White Blood Count 21.6 K/mm3 (4.5-10.0)
[2022-08-08 06:05] LABS: Anion Gap 5 mmol/L (8-16); Blood Urea Nitrogen 14 mg/dL (7-17); Calcium 7.6 mg/dL (8.4-10.2); Carbon Dioxide 23 mmol/L (22-30); Chloride 105 mmol/L (98-107); Estimated CRCL calculation 54 ml/min; Estimated Glomerular Filt Rate > 60; Glucose 113 mg/dL (65-110); Sodium 133 mmol/L (137-145)
--- NOTE | 2022-08-08 09:13 | WPDANESPN ---
Anes - Prog Note Post-Op Date/Time: 08/08/22 09:13 Cardiovascular status: normal Respiratory status: normal Airway patency: baseline Mental status: baseline Post-Op hydration status: normal Vital Signs: Last Vital Signs Temp 36.4 C L 08/08/22 08:00 Pulse 76 08/08/22 08:00 Resp 12 08/08/22 08:00 BP 93/48 L 08/08/22 08:00 Pulse Ox 99 08/08/22 08:00 O2 Del Method Nasal Cannula 08/07/22 20:49 O2 Flow Rate 3 08/07/22 20:49 Pain Score (VAS): 12/04 I/O: Intake & Output 08/07/22 08/08/22 08/08/22 23:59 07:59 15:59 Intake Total 400 6 Output Total 325 600 Balance 75 -594 Laboratory Tests 08/08/22 05:23 08/08/22 05:23 07/28/22 08/07/22 08/07/22 11:28 10:18 10:47 WBC RBC Hgb 9.8 L Hct 33.2 L MCV MCH MCHC RDW Plt Count MPV Sodium Potassium Chloride Carbon Dioxide Anion Gap BUN Creatinine Estim Creat Clear Calc Estimated GFR Glucose POC Capillary Glucose 152 H Calcium Blood Type A Positive Antibody Screen Negative Crossmatch See Detail 08/07/22 08/07/22 08/07/22 19:12 19:12 19:23 WBC 22.1 H RBC 4.90 Hgb 11.4 L Hct 38.0 MCV 77.6 L D MCH 23.3 L D MCHC 30.0 L RDW 20.2 H Plt Count 278 MPV 9.8 Sodium 135 L Potassium 4.2 Chloride 108 H Carbon Dioxide 20 L Anion Gap 7 L BUN 15 Creatinine 0.90 Estim Creat Clear Calc 51 Estimated GFR > 60 Glucose 146 H POC Capillary Glucose 151 H Calcium 7.6 L Blood Type Antibody Screen Crossmatch 08/08/22 08/08/22 05:23 05:23 WBC 21.6 H RBC 4.50 Hgb 10.4 L Hct 33.9 L MCV 75.3 L MCH 23.1 L MCHC 30.7 L RDW 20.3 H Plt Count 252 MPV 10.7 H Sodium 133 L Potassium 4.0 Chloride 105 Carbon Dioxide 23 Anion Gap 5 L BUN 14 Creatinine 0.90 Estim Creat Clear Calc 54 Estimated GFR > 60 Glucose 113 H POC Capillary Glucose Calcium 7.6 L Blood Type Antibody Screen Crossmatch Post-procedural complaints: none Patient Feedback: Patient satisfied with anesthetic care.
[2022-08-08] MEDS: FAMOTIDINE 20 MG/2 ML VIAL IV PUSH ×2 (09:44→20:56)
[2022-08-08] MEDS: ENOXAPARIN 40 MG/0.4 ML SYRINGE SUB-Q (09:44)
--- NOTE | 2022-08-08 10:25 | PM.IMCN ---
Assessment and Plan Assessment and plan (1) Status post laparoscopic-assisted sigmoidectomy: Code(s): Z90.49 - Acquired absence of other specified parts of digestive tract Status: Acute Assessment and Plan: Patient with rectal bleeding ongoing approximately 4 months who had GI evaluation which revealed sigmoid polyps that were felt to be the source of rectal bleeding. patient was having rectal bleeding several times per week, therefore sigmoidectomy was planned to control bleeding. Patient underwent hand access laparoscopic sigmoidectomy with takedown of splenic flexure on 08/07/[address]. she tolerated this procedure well. Management per General surgery. Currently on clear liquid diet. (2) Hypovolemia dehydration: Code(s): E86.1 - Hypovolemia Status: Acute Assessment and Plan: Likely secondary to blood loss. patient was hypotensive preoperatively with blood pressures in the 80s-90s systolic. She was transfused 3 units packed RBCs and received fluid resuscitation. Blood pressures have been stable today in the upper 90s-100s systolic. Last BP 97/49. Patient is asymptomatic. Continue with gentle IV fluids, lactated Ringer's at 80 mL/hour. Monitor volume status closely to avoid over hydration given history of CHF. At this time, will hold amiodarone, entersto, and metoprolol. Resume when clinically appropriate. Continue to monitor blood pressures closely throughout the day. (3) Acute on chronic blood loss anemia: Code(s): D62 - Acute posthemorrhagic anemia Status: Acute Assessment and Plan: Secondary to rectal bleeding. Hemoglobin declined to 7.2 this admission and she was transfused 3 units packed RBCs. H&H remaining stable postoperatively. Hgb 10.4, Hct 33.9 today. No further bleeding. Continue to monitor H&H daily during admission. (4) Leukocytosis: Code(s): D72.829 - Elevated white blood cell count, unspecified Status: Acute Assessment and Plan: WBC 21.6 today. Likely reactive secondary to surgery. No signs /symptoms to suggest infection and WBC was normal on admission. Continue to monitor CBC with differential. 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 Eliquis has been held perioperatively. Resume when appropriate per General surgery. (6) CHF (congestive heart failure): Code(s): I50.9 - Heart failure, unspecified Status: Acute Assessment and Plan: Patient with history of CHF. no prior echo for review. CXR shows mild pulmonary edema, however patient appears clinically compensated and is requiring IV fluids due to relative hypotension. As above, monitor volume status closely to avoid over-hydration. Entresto and metoprolol on hold as above, again due to hypotension. Will be resumed when clinically appropriate (7) Coronary artery disease: Code(s): I25.10 - Atherosclerotic heart disease of [place] coronary artery without angina pectoris Status: Acute Assessment and Plan: patient is established with conference organizer, Dr. Seals at [facility]. she was evaluated by her conference organizer preoperatively and was informed she is stable from a cardiac perspective. (8) Atrial fibrillation: Code(s): I48.91 - Unspecified atrial fibrillation Status: Acute Assessment and Plan: Patient with history of atrial fibrillation, maintained on amiodarone, metoprolol, and Eliquis for stroke prophylaxis. She is in a paced rhythm at this time And rate is controlled. Holding amiodarone and metoprolol due to hypotension. As above, Eliquis on hold perioperatively. (9) Diabetes: Code(s): E11.9 - Type 2 diabetes mellitus without complications Status: Acute Assessment and Plan: Diet contro
[2022-08-08] MEDS: LACTATED RINGERS 1,000 ML 80 ML IV CONT (11:19)
[2022-08-08 13:24] LABS: Hemoglobin A1C 5.7 % (<5.7)
--- NOTE | 2022-08-08 15:14 | PM.PNGS ---
Progress Note: A&P Assessment and Plan (1) Status post laparoscopic-assisted sigmoidectomy: Code(s): Z90.49 - Acquired absence of other specified parts of digestive tract Status: Acute Assessment and Plan: Patient seems to be coming along postop day 1. Will increase diet to full liquids. Monitor labs. Continue Entereg. Blood pressure running a little low. Have increased IV fluids and a 200 cc/hour and medicine has helped some of her antihypertensives. She is starting some liquids so will see how this progresses through the next 24 hours and hopefully resume some of her CHF drugs. (2) Diabetes: Code(s): E11.9 - Type 2 diabetes mellitus without complications Status: Acute Assessment and Plan: Appreciate hospitalist's help in watching this. 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 (7) Chronic a-fib: Code(s): I48.20 - Chronic atrial fibrillation, unspecified Status: Chronic Subjective Subjective Date/Time Seen: 08/08/22 12:14 Post Op day: 1 ( Sitting up in bed tolerating clears) Patient reports: tolerating liquids well, no flatus and no bowel movement Interval history: patient denies nausea. Has tolerated a clear liquid breakfast and is trying lunch. Has not been out of bed yet but uses a cane therefore will get PT to see tomorrow. Review of Systems Review of Systems: All systems reviewed & are unremarkable except as noted in HPI and below Constitutional: Constitutional: Reports as per HPI, Denies chills and Denies fever(s) Cardiovascular: Cardiovascular: Denies chest pain and Denies dyspnea Respiratory: Respiratory: Reports no additional respiratory complaints and Denies dyspnea Gastrointestinal: Gastrointestinal: Reports as per HPI and Denies bloating Musculoskeletal: Musculoskeletal: Reports no additional musculoskeletal complaints Neurologic: Denies memory loss Psychiatric: Psychiatric: Denies anxiety and Denies memory loss Exam Const: General: cooperative, comfortable, alert and awake HENMT: Head: normal to inspection Mouth: Yes moist mucous membranes Eyes: Sclera: sclerae normal Pupils: Equal, round and reactive pupils present Neck: Neck: normal visual inspection Chest: Chest palpation & inspection: normal inspection of the chest Resp: Effort & Inspection: normal respiratory effort Auscultation: clear to auscultation bilaterally Cardio: Rate: regular rate Neuro: Cranial nerves: Yes Equal, round and reactive pupils present Objective Data Vital Signs Vital Signs: Vital Signs - 24 hr 08/07/22 19:03 08/07/22 19:18 08/07/22 19:33 Temperature 36.3 C L Pulse Rate 82 77 73 Respiratory Rate 19 12 12 Blood Pressure 103/78 114/68 104/63 Pulse Oximetry 97 97 100 Oxygen Delivery Simple Face Mask Simple Face Mask Simple Face Mask Oxygen Flow Rate 10 10 10 08/07/22 19:49 08/07/22 20:04 08/07/22 20:19 Temperature Pulse Rate 70 73 74 Respiratory Rate 12 12 10 L Blood Pressure 106/62 99/64 L 102/58 L Pulse Oximetry 100 100 100 Oxygen Delivery Simple Face Mask Simple Face Mask Nasal Cannula Oxygen Flow Rate 10 10 3 08/07/22 20:34 08/07/22 20:49 08/07/22 21:15 Temperature 36.2 C L 36.6 C Pulse R
[2022-08-08 15:44] LABS: Albumin Level 2.5 g/dL (3.5-5.1)
[2022-08-08] MEDS: ALVIMOPAN 12 MG CAPSULE PO (20:56)
[2022-08-08] MEDS: LACTATED RINGERS 1,000 ML 100 ML IV CONT (23:25)
[2022-08-09] VITALS (9 sets, daily range): BP systolic 119–130; BP diastolic 49–61; PULSE 62–85; RESP 16–20; TEMP 36.8–37.2; O2SAT 91–99
[2022-08-09] MEDS: LEVOTHYROXINE SODIUM 100 MCG TABLET PO (05:35)
[2022-08-09 05:45] LABS: Hematocrit 32.5 % (37.0-47.0); Hemoglobin 9.7 g/dL (12.0-15.0); Mean Corpuscular HGB Conc 29.8 g/dl (32-36); Mean Platelet Volume 9.6 fl (7.4-10.4); Platelet Count Result 245 k/mm3 (150-375); Red Blood Count 4.22 M/mm3 (4.2-5.4); Red Cell Distribution Width 21.8 % (11.5-14.5); White Blood Count 12.9 K/mm3 (4.5-10.0)
[2022-08-09 05:57] LABS: Alanine Aminotransferase 76 U/L (6-35); Albumin Level 2.7 g/dL (3.5-5.1); Alkaline Phosphatase 61 U/L (38-126); Anion Gap 7 mmol/L (8-16); Aspartate Amino Transferase 62 U/L (14-36); Bilirubin,Total 1.6 mg/dL (0.2-1.3); Blood Urea Nitrogen 10 mg/dL (7-17); Calcium 8.1 mg/dL (8.4-10.2); Carbon Dioxide 28 mmol/L (22-30); Chloride 102 mmol/L (98-107); Estimated CRCL calculation 54 ml/min; Estimated Glomerular Filt Rate > 60; Glucose 94 mg/dL (65-110); Potassium 3.7 mmol/L (3.4-5.0); Sodium 137 mmol/L (137-145)
[2022-08-09] MEDS: ACETAMINOPHEN 500 MG TABLET PO (08:53)
[2022-08-09] MEDS: FAMOTIDINE 20 MG/2 ML VIAL IV PUSH (08:54)
[2022-08-09] MEDS: ALVIMOPAN 12 MG CAPSULE PO ×2 (08:54→21:29)
[2022-08-09] MEDS: ENOXAPARIN 40 MG/0.4 ML SYRINGE SUB-Q (08:55)
[2022-08-09] MEDS: LACTATED RINGERS 1,000 ML 50 ML IV CONT (09:12)
--- NOTE | 2022-08-09 09:26 | PM.PNGS ---
Progress Note: A&P Assessment and Plan (1) Status post laparoscopic-assisted sigmoidectomy: Code(s): Z90.49 - Acquired absence of other specified parts of digestive tract Status: Acute Assessment and Plan: Patient seems to be coming along postop day 2. Will increase diet to soft. Monitor labs. Continue Entereg. Blood pressure running somewhat better today. As part of transfer will restart her on S2 and leave other hypertensive arrhythmic meds up to hospitalist to restart. Will decrease amount of IV fluids and stop this afternoon if blood pressure remains good. Some of her antihypertensives were held yesterday. She had a bowel movement so will increase diet and change Pepcid to oral. (2) Diabetes: Code(s): E11.9 - Type 2 diabetes mellitus without complications Status: Acute Assessment and Plan: Appreciate hospitalist's help in watching this. 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 Hemoglobin slightly down today but still okay at around 9. (4) CHF (congestive heart failure): Code(s): I50.9 - Heart failure, unspecified Status: Acute Assessment and Plan: Since blood pressure better will restart Jay and leave other antihypertensives held until medicine feels they can be restarted 2. (5) Acute on chronic blood loss anemia: Code(s): D62 - Acute posthemorrhagic anemia Status: Acute Assessment and Plan: Monitor labs ( patient got 3 units of blood prior to OR on Wednesday). Hemoglobin 9.7 today. (6) prison (current) use of anticoagulants: Code(s): Z79.01 - prison (current) use of anticoagulants Status: Chronic Assessment and Plan: anticoagulation on hold around surgery. Patient on prophylactic Lovenox. (7) Chronic a-fib: Code(s): I48.20 - Chronic atrial fibrillation, unspecified Status: Chronic Subjective Subjective Date/Time Seen: 08/09/22 09:26 Post Op day: 2 (Doing well, tolerating full liquid diet) Patient reports: still having pain (Mainly incisional/abdominal), flatus and bowel movement Interval history: States she feels in ?crummy? but looks happy and talking normally. States that at home she Tums sometimes has to void every 15 minutes and then we can go for 3 hours. Will leave the Elder in a little bit longer during transfer then removed this afternoon after PT sees her to help with mobility. Review of Systems Review of Systems: All systems reviewed & are unremarkable except as noted in HPI and below Constitutional: Constitutional: Reports as per HPI, Denies chills and Denies fever(s) Cardiovascular: Cardiovascular: Denies chest pain and Denies dyspnea Respiratory: Respiratory: Reports no additional respiratory complaints and Denies dyspnea Gastrointestinal: Gastrointestinal: Reports as per HPI and Denies bloating Musculoskeletal: Musculoskeletal: Reports no additional musculoskeletal complaints Neurologic: Denies memory loss Psychiatric: Psychiatric: Denies anxiety and Denies memory loss Exam Const: General: cooperative, comfortable, alert and awake HENMT: Head: normal to inspection Mouth: Yes moist mucous membranes Eyes: Sclera: sclerae normal Pupils: Equal, round and reactive pupils present Neck: Neck: normal visual inspection Chest: Chest palpation & inspection: normal inspection of the chest Resp: Effort & Inspection: normal respiratory effort Auscultation: clear to auscultation bilaterally Cardio: Rate: regular rate GI: Inspection: incision (Clean and dry) and obesity GI Palp: Yes abdominal tenderness (Mid and lower abdomen) and No Hernia present Auscultation: normal bowel sounds Neuro: Cranial nerves: Yes Equal, round and reactive pupils presen
--- NOTE | 2022-08-09 12:41 | PM.IMPN ---
Progress Note: A&P Assessment and Plan (1) Status post laparoscopic-assisted sigmoidectomy: Code(s): Z90.49 - Acquired absence of other specified parts of digestive tract Status: Acute Assessment and Plan: Patient with rectal bleeding ongoing approximately 4 months who had GI evaluation which revealed sigmoid polyps that were felt to be the source of rectal bleeding. patient was having rectal bleeding several times per week, therefore sigmoidectomy was planned to control bleeding. Patient underwent hand access laparoscopic sigmoidectomy with takedown of splenic flexure on 08/07/[address] Abrams. She tolerated this procedure well. Management per General surgery. Has been advanced to soft, low-fiber diet (2) Hypovolemia dehydration: Code(s): E86.1 - Hypovolemia Status: Acute Assessment and Plan: Likely secondary to blood loss. patient was hypotensive preoperatively with blood pressures in the 80s-90s systolic. She was transfused 3 units packed RBCs and received fluid resuscitation. Blood pressures are improved today in the 130s systolic. IV fluids have been discontinued and patient is tolerating adequate p.o. intake. Will resume Entresto, metoprolol, amiodarone. Monitor volume status closely and continue to monitor blood pressures and adjust medication regimen as needed (3) Acute on chronic blood loss anemia: Code(s): D62 - Acute posthemorrhagic anemia Status: Acute Assessment and Plan: Secondary to rectal bleeding. Hemoglobin declined to 7.2 this admission and she was transfused 3 units packed RBCs. H&H remaining stable postoperatively. Hgb 9.7 today. No further bleeding. Continue to monitor H&H daily during admission. (4) Leukocytosis: Code(s): D72.829 - Elevated white blood cell count, unspecified Status: Acute Assessment and Plan: Markedly improved. Likely reactive secondary to surgery. No signs /symptoms to suggest infection and WBC was normal on admission. Continue to monitor CBC with differential. (5) longterm (current) use of anticoagulants: Code(s): Z79.01 - longterm (current) use of anticoagulants Status: Chronic Assessment and Plan: Patient on Eliquis due to history of atrial fibrillation. Eliquis has been held perioperatively. Resume when appropriate per General surgery. (6) CHF (congestive heart failure): Code(s): I50.9 - Heart failure, unspecified Status: Acute Assessment and Plan: Patient with history of CHF. No prior echo for review. CXR shows mild pulmonary edema, however patient appears clinically compensated. IV fluids discontinued today to avoid over-hydration. Entresto and metoprolol have been resumed (7) Coronary artery disease: Code(s): I25.10 - Atherosclerotic heart disease of [place] coronary artery without angina pectoris Status: Acute Assessment and Plan: Patient is established with precision devices inspector/tester, Dr. Seals at [facility]. she was evaluated by her precision devices inspector/tester preoperatively and was informed she is stable from a cardiac perspective. (8) Atrial fibrillation: Code(s): I48.91 - Unspecified atrial fibrillation Status: Acute Assessment and Plan: Patient with history of atrial fibrillation, maintained on amiodarone, metoprolol, and Eliquis for stroke prophylaxis. She is in a paced rhythm at this time and rate is controlled. Amiodarone and metoprolol previously held due to hypotension, have been resumed. As above, Eliquis on hold perioperatively. No need for further monitoring on telemetry, will discontinue (9) Diabetes: Code(s): E11.9 - Type 2 diabetes mellitus without complications Status: Acute Assessment and Plan: Diet controlled. Patient is not insulin or oral hypoglycemic agents. Blood sugars have been stable during admission. A1c is 5.7. No need for further monitoring during admission
--- NOTE | 2022-08-09 13:26 | PC.NURSE ---
Pt states pain 10/10, but said that she is allergic to codeine. Asked pt what she takes for pain and she states tylenol. Asked her what she takes beyond that, she stated nothing because she is allergic to all of it. Call made to Dr. Arboleda to request different pain meds. He requested checking again with her on pain medication. Asked pt again with in room. External med source shows that she has had norco 5/325 Q6HR PRN, oxy 5/325 Q6HR PRN, and tramadol 50 Q8hr PRN. Asked pt if she was able to take the oxy and tolerate it when she had broken her humerus. Pt stated she didn't know, but thinks she could. states that she didn't have any problems with it. Pt reaction to oxy is vomiting. I asked pt if she would be willing to try a dose if we have zofran available in case she feels nauseated. She stated she would be willing to try.
--- NOTE | 2022-08-09 13:50 | PCPTNOTE ---
Attempted to do physical therapy evaluation, but nursing reports patient in too much pain and unable to give her medicine for another hour. Will attempt to see tomorrow.
[2022-08-09] MEDS: oxyCODONE/ACETAMINOPHEN (*CRX) 5-325 MG TABLET 1 TABLET PO ×2 (14:00→22:06)
--- NOTE | 2022-08-09 16:19 | PC.NURSE ---
This patient, Hawk Hagen, was transferred to [[id number] ] on 08/09/22 at 1255. Personal belongings sent with patient. Report given to [Shannan PEREZ ]. Appropriate documentation sent with patient.
--- NOTE | 2022-08-09 19:46 | PC.NURSE ---
Pt assessment done around 1430; forgot to change time of assessment when charting. Rstepannika RN
[2022-08-09] MEDS: AMIODARONE HCL 200 MG TABLET PO (21:55)
[2022-08-09] MEDS: METOPROLOL SUCCINATE EXT REL 25 MG TABCR PO (21:56)
[2022-08-09] MEDS: SACUBITRIL/VALSARTAN 24-26 MG TABLET 1 TAB PO (21:56)
[2022-08-09] MEDS: FAMOTIDINE 20 MG TABLET PO (21:57)
[2022-08-10 04:46] LABS: Hematocrit 31.8 % (37.0-47.0); Hemoglobin 9.5 g/dL (12.0-15.0); Mean Corpuscular HGB Conc 29.9 g/dl (32-36); Mean Corpuscular Hemoglobin 23.2 pg (26-34); Mean Corpuscular Volume 77.8 fl (80-100); Mean Platelet Volume 9.5 fl (7.4-10.4); Platelet Count Result 253 k/mm3 (150-375); Red Blood Count 4.09 M/mm3 (4.2-5.4); Red Cell Distribution Width 22.4 % (11.5-14.5); White Blood Count 12.2 K/mm3 (4.5-10.0)
[2022-08-10 04:57] LABS: Alanine Aminotransferase 59 U/L (6-35); Albumin Level 2.6 g/dL (3.5-5.1); Alkaline Phosphatase 60 U/L (38-126); Anion Gap 6 mmol/L (8-16); Aspartate Amino Transferase 42 U/L (14-36); Bilirubin,Total 1.4 mg/dL (0.2-1.3); Blood Urea Nitrogen 9 mg/dL (7-17); Calcium 7.8 mg/dL (8.4-10.2); Carbon Dioxide 29 mmol/L (22-30); Chloride 101 mmol/L (98-107); Estimated CRCL calculation 54 ml/min; Estimated Glomerular Filt Rate > 60; Glucose 91 mg/dL (65-110); Potassium 3.4 mmol/L (3.4-5.0); Sodium 136 mmol/L (137-145)
[2022-08-10] MEDS: LEVOTHYROXINE SODIUM 100 MCG TABLET PO (05:25)
[2022-08-10 05:42] VITALS: BP 133/66; PULSE 79; RESP 18; TEMP 36.6; O2SAT 91
[2022-08-10] MEDS: AMIODARONE HCL 200 MG TABLET PO ×2 (08:36→22:18)
[2022-08-10] MEDS: ENOXAPARIN 40 MG/0.4 ML SYRINGE SUB-Q (08:36)
[2022-08-10] MEDS: ALVIMOPAN 12 MG CAPSULE PO (08:36)
[2022-08-10] MEDS: SACUBITRIL/VALSARTAN 24-26 MG TABLET 1 TAB PO ×2 (08:36→22:18)
[2022-08-10 08:37] VITALS: PULSE 80
[2022-08-10] MEDS: METOPROLOL SUCCINATE EXT REL 25 MG TABCR PO ×2 (08:37→22:20)
[2022-08-10] MEDS: FAMOTIDINE 20 MG TABLET PO ×2 (08:39→22:18)
[2022-08-10] MEDS: oxyCODONE/ACETAMINOPHEN (*CRX) 5-325 MG TABLET 1 TABLET PO (08:43)
--- NOTE | 2022-08-10 11:24 | PM.PNGS ---
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 No rectal bleeding so far postoperatively. Patient seems to be recovering well status post sigmoid resection with distal descending colon. Having bowel movements daily. Feeling better. Diuresing. Will DC Elder catheter today. Advance to regular diet. Increase ambulation. Possibly home tomorrow if continues to improve. (2) Rectal bleeding: Code(s): K62.5 - Hemorrhage of anus and rectum Status: Chronic Assessment and Plan: Presumably due to inflammatory polyps noted at colonoscopy. Pathology pending. No bleeding postoperatively as yet. (3) Iron deficiency anemia due to chronic blood loss: Code(s): D50.0 - Iron deficiency anemia secondary to blood loss (chronic) Status: Chronic Assessment and Plan: Will start on ferrous sulfate (4) Atrial fibrillation: Code(s): I48.91 - Unspecified atrial fibrillation Status: Acute Assessment and Plan: on amiodarone. Will hold off on restarting apixaban. (5) CHF (congestive heart failure): Code(s): I50.9 - Heart failure, unspecified Status: Chronic Assessment and Plan: Diuresing excess fluids from day of surgery. Making good progress. Subjective Subjective Date/Time Seen: 08/10/22 11:24 Post Op day: 3 Patient reports: no new complaints, feels better, pain is less, tolerating a regular diet, bowel movement and afebrile Exam Const: General: comfortable and no acute distress; No confusion Orientation/consciousness: patient oriented x3 and No confusion GI: Inspection: non-distended and incision (All incisions dry and healing well) GI Palp: Yes Soft to palpation, Yes Tenderness to palpation present (GI), No Guarding due to palpation present (GI) and No Rebound tenderness present Auscultation: normal bowel sounds and normoactive bowel sounds Neuro: General: patient oriented x3, no focal motor deficits and No confusion Extrem: General: no calf tenderness and no edema Psych: Affect: normal affect Insight: Good insight present (Psych) Judgement: Good judgement present (Psych) Objective Data Vital Signs Vital Signs: Vital Signs - 24 hr 08/09/22 21:55 08/09/22 21:56 08/09/22 21:44 Temperature 36.8 C Pulse Rate 72 72 76 Respiratory Rate 20 Blood Pressure 119/49 L Pulse Oximetry 93 Oxygen Delivery 08/09/22 21:56 08/10/22 05:42 08/10/22 08:37 Temperature 36.6 C Pulse Rate 79 80 Respiratory Rate 18 Blood Pressure 133/66 Pulse Oximetry 91 Oxygen Delivery Room Air 08/10/22 09:52 Temperature Pulse Rate Respiratory Rate Blood Pressure Pulse Oximetry Oxygen Delivery Room Air Intake/Output Intake/Output: Intake & Output 08/07/22 08/08/22 08/09/22 08/10/22 23:59 23:59 23:59 23:59 Intake Total 2050 2726 2700 700 Output Total 525 1450 1925 1400 Balance 1525 1276 775 -700 Meds/Results Medications: Active Medications Generic Name Dose Route Start Last Admin Trade Name Freq PRN Reason Stop Dose Admin Acetaminophen 500 mg 08/07/22 20:57 08/09/22 08:53 Acetaminophen 500 Mg Tablet PO 500 mg Q6H PRN Administration Mild Pain (1-3) or Fever Amiodarone HCl 200 mg 08/08/22 09:00 08/09/22 21:55 Amiodarone Hcl 200 Mg Tablet PO 200 mg Q12HR ADARSH Administration Enoxaparin Sodium 40 mg 08/08/22 09:00 08/10/22 08:36 Enoxaparin 40 Mg/0.4 Ml Syringe SUB-Q 40 mg DAILY ADARSH Administration Famotidine 20 mg 08/09/22 21:00 08/10/22 08:39 Famotidine 20 Mg Tablet PO 20 mg Q12HR ADARSH Administration Fentanyl Citrate 25 mcg 08/07/22 20:57 Fentanyl Citrate Inj (*Crx) 100 Mcg/2 Ml Vial IV PUSH Q2H PRN Pain Rated 7-10 Fentanyl Citrate 12.5 mcg
--- NOTE | 2022-08-10 13:05 | PM.IMPN ---
Progress Note: A&P Assessment and Plan (1) Status post laparoscopic-assisted sigmoidectomy: Code(s): Z90.49 - Acquired absence of other specified parts of digestive tract Status: Acute Assessment and Plan: Patient with rectal bleeding ongoing approximately 4 months who had GI evaluation which revealed sigmoid polyps that were felt to be the source of rectal bleeding. Patient was having rectal bleeding several times per week, therefore sigmoidectomy was planned to control bleeding. Patient underwent hand access laparoscopic sigmoidectomy with takedown of splenic flexure on 08/07/[address] Abrams. She tolerated this procedure well. Management per General surgery. Has been advanced to regular diet (2) Hypovolemia dehydration: Code(s): E86.1 - Hypovolemia Status: Acute Assessment and Plan: Likely secondary to blood loss. patient was hypotensive preoperatively with blood pressures in the 80s-90s systolic. She was transfused 3 units packed RBCs and received fluid resuscitation. Blood pressures are now stable. IV fluids have been discontinued and patient is tolerating adequate p.o. intake. She is back on her home Entresto, metoprolol, amiodarone. Continue to monitor volume status and blood pressure trends closely (3) Acute on chronic blood loss anemia: Code(s): D62 - Acute posthemorrhagic anemia Status: Acute Assessment and Plan: Secondary to rectal bleeding. Hemoglobin declined to 7.2 this admission and she was transfused 3 units packed RBCs. H&H remaining stable postoperatively. Hgb 9.5 today. No further bleeding. Continue to monitor H&H daily during admission. (4) Leukocytosis: Code(s): D72.829 - Elevated white blood cell count, unspecified Status: Acute Assessment and Plan: Markedly improved. Likely reactive secondary to surgery. No signs /symptoms to suggest infection and WBC was normal on admission. Continue to monitor CBC with differential. 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 Eliquis has been held perioperatively. Resume when appropriate per General surgery. (6) CHF (congestive heart failure): Code(s): I50.9 - Heart failure, unspecified Status: Chronic Assessment and Plan: Patient with history of CHF. No prior echo for review. CXR shows mild pulmonary edema, however patient appears clinically compensated. Entresto and metoprolol have been resumed (7) Coronary artery disease: Code(s): I25.10 - Atherosclerotic heart disease of [place] coronary artery without angina pectoris Status: Acute Assessment and Plan: Patient is established with folder hand, Dr. Seals at [facility]. she was evaluated by her folder hand preoperatively and was informed she is stable from a cardiac perspective. (8) Atrial fibrillation: Code(s): I48.91 - Unspecified atrial fibrillation Status: Acute Assessment and Plan: Patient with history of atrial fibrillation, maintained on amiodarone, metoprolol, and Eliquis for stroke prophylaxis. She is in a paced rhythm at this time and rate is controlled. Continue amiodarone and metoprolol. As above, Eliquis on hold perioperatively. (9) Diabetes: Code(s): E11.9 - Type 2 diabetes mellitus without complications Status: Acute Assessment and Plan: Diet controlled. Patient is not on insulin or oral hypoglycemic agents. Blood sugars have been stable during admission. A1c is 5.7. No need for further monitoring during admission Plan Very mildly elevated LFTs with downward trend. Anticipate complete resolution. Subjective Date/time seen: 08/10/22 13:05 Interval history: Date of service: 08/10/2022 Hawk Florentino Hieu is a 66 ye
[2022-08-10] MEDS: NEOMYCIN/POLYMYXIN/BACITRACIN OINTMENT PACKET 1 PACKET (13:45)
[2022-08-10 14:05] VITALS: BP 122/68; PULSE 75; RESP 14; TEMP 36.6; O2SAT 96
[2022-08-10] MEDS: FERROUS SULFATE 324 MG TABLET PO (18:18)
[2022-08-10 22:00] VITALS: BP 133/67; PULSE 76; RESP 20; TEMP 36.7; O2SAT 95
[2022-08-10 22:18] VITALS: PULSE 73
[2022-08-10 22:20] VITALS: PULSE 73
[2022-08-11] MEDS: LEVOTHYROXINE SODIUM 100 MCG TABLET PO (05:43)
[2022-08-11 06:00] VITALS: BP 135/68; PULSE 81; RESP 20; TEMP 36.4; O2SAT 95
[2022-08-11 06:29] LABS: Hematocrit 33.6 % (37.0-47.0); Mean Corpuscular HGB Conc 29.8 g/dl (32-36); Mean Corpuscular Hemoglobin 22.4 pg (26-34); Mean Corpuscular Volume 75.3 fl (80-100); Mean Platelet Volume 9.3 fl (7.4-10.4); Platelet Count Result 248 k/mm3 (150-375); Red Blood Count 4.46 M/mm3 (4.2-5.4); Red Cell Distribution Width 22.9 % (11.5-14.5); White Blood Count 11.1 K/mm3 (4.5-10.0)
[2022-08-11 06:39] LABS: Anion Gap 7 mmol/L (8-16); Blood Urea Nitrogen 7 mg/dL (7-17); Calcium 7.8 mg/dL (8.4-10.2); Carbon Dioxide 26 mmol/L (22-30); Chloride 104 mmol/L (98-107); Estimated CRCL calculation 68 ml/min; Estimated Glomerular Filt Rate > 60; Glucose 99 mg/dL (65-110); Potassium 3.3 mmol/L (3.4-5.0); Sodium 137 mmol/L (137-145)
--- NOTE | 2022-08-11 07:55 | PM.DS ---
DS: Admitting Diagnosis Discharge Date 08/11/2022 Admitting Diagnosis rectal bleeding inflammatory polyps of the sigmoid colon iron deficiency anemia due to chronic blood loss chronic atrial fibrillation cardiomyopathy long-term use of anticoagulants history of stroke status AICD device DS: Discharge Diagnosis Discharge Diagnosis (1) Hypovolemia dehydration: Code(s): E86.1 - Hypovolemia Status: Acute (2) Iron deficiency anemia due to chronic blood loss: Code(s): D50.0 - Iron deficiency anemia secondary to blood loss (chronic) Status: Chronic (3) Rectal bleeding: Code(s): K62.5 - Hemorrhage of anus and rectum Status: Chronic (4) 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: Code(s): K51.419 - Inflammatory polyps of colon with unspecified complications Status: Chronic (5) CVA (cerebral vascular accident): Code(s): I63.9 - Cerebral infarction, unspecified Status: Chronic (6) Cardiomyopathy: Code(s): I42.9 - Cardiomyopathy, unspecified Status: Chronic (7) Chronic a-fib: Code(s): I48.20 - Chronic atrial fibrillation, unspecified Status: Chronic (8) jail (current) use of anticoagulants: Code(s): Z79.01 - jail (current) use of anticoagulants Status: Chronic DS: Summary Hospital Course Hospital Course: patient is a 66-year-old woman with chronic rectal bleeding leading to transfusions and anemia. She had a colonoscopy last April which showed inflammatory polyps predominantly of the sigmoid colon which were appeared to be the source of the bleeding. She also takes Eliquis for chronic atrial fibrillation. She has a previous history of stroke and when seen as an outpatient her history was not particularly clear. I spoke with her primary care physician as well as Dr. Dhaliwal, acds block 1 operator regarding the patient. She did have cardiac clearance from her through operator, , as well. Her most recent cardiac echo showed an ejection fraction of 50%. She was anemic at the time of surgery but not acutely anemic. She was taken to surgery on the day of admission, 08/07/2024. This was early in the morning and unfortunately the patient did not do well with induction of anesthesia. She became very hypotensive. She required placement of central line arterial line and blood transfusion as well as crystalloid infusion. With her cardiac history of cardiomyopathy, AICD device, chronic atrial fibrillation, even though she was resuscitated and blood pressure and heart rate improved with these measures, it was unclear if all that was going on was due to hypovolemia and anemia. The patient did receive 3 L of crystalloid as well as 3 units of packed cells during this resuscitation. The patient had been bowel prepped and was to have surgery, she was watched in the PACU for several hours and was stable. She was awake and conversant during this time. I had conversations with her during this time. About 330 or 4:00 a.m. on the day of admission, the patient was taken back to surgery for hand access laparoscopic sigmoidectomy. The surgery went well. The patient was noted to have tattooed areas on the proximal sigmoid and distal descending colon. An extended sigmoidectomy was done that included the distal descending colon. Splenic flexure was mobilized. Patient did not require any additional transfusions. Number 33 EEA colorectal anastomosis was performed. Postoperatively, the patient did well. Bowel function returned fairly quickly. She was advanced to solid food within 48 hours. She had bowel movements and did not have any blood in her bowel movements. She primarily experience a lot of diuresis without the assistance of Lasix or other diuretics. She was followed by the hospitalist service postoperatively. From surgery she was taken to the intermediate care unit but then transferred to [facility] floor. Louis
[2022-08-11 08:00] VITALS: PULSE 81; RESP 20; O2SAT 95
[2022-08-11] MEDS: METOPROLOL SUCCINATE EXT REL 25 MG TABCR PO (08:49)
[2022-08-11] MEDS: AMIODARONE HCL 200 MG TABLET PO (08:49)
[2022-08-11] MEDS: SACUBITRIL/VALSARTAN 24-26 MG TABLET 1 TAB PO (08:49)
[2022-08-11] MEDS: FAMOTIDINE 20 MG TABLET PO (08:49)
[2022-08-11] MEDS: FERROUS SULFATE 324 MG TABLET PO (08:49)
[2022-08-11] MEDS: POTASSIUM CHLORIDE 20 MEQ TABLET PO (09:46)
--- NOTE | 2022-08-11 13:20 | PCOTNOTE ---
Patient refused treatment this session due to waiting for her to arrive and take her home. Per RN, Patient is discharging and is waiting her her ride.
--- NOTE | 2022-08-11 13:28 | PM.IMPN ---
Progress Note: A&P Assessment and Plan (1) Status post laparoscopic-assisted sigmoidectomy: Code(s): Z90.49 - Acquired absence of other specified parts of digestive tract Status: Acute Assessment and Plan: Patient with rectal bleeding ongoing approximately 4 months who had GI evaluation which revealed sigmoid polyps that were felt to be the source of rectal bleeding. Patient was having rectal bleeding several times per week, therefore sigmoidectomy was planned to control bleeding. Patient underwent hand access laparoscopic sigmoidectomy with takedown of splenic flexure on 08/07/[address] Abrams. She tolerated this procedure well. Management per General surgery (2) Hypovolemia dehydration: Code(s): E86.1 - Hypovolemia Status: Acute Assessment and Plan: Likely secondary to blood loss. patient was hypotensive preoperatively with blood pressures in the 80s-90s systolic. She was transfused 3 units packed RBCs and received fluid resuscitation. Blood pressures have remained stable postoperatively. She is back on her home Entresto, metoprolol, amiodarone. (3) Acute on chronic blood loss anemia: Code(s): D62 - Acute posthemorrhagic anemia Status: Acute Assessment and Plan: Secondary to rectal bleeding. Hemoglobin declined to 7.2 this admission and she was transfused 3 units packed RBCs. H&H remaining stable postoperatively, 9.5-10. No further episodes bleeding. (4) Leukocytosis: Code(s): D72.829 - Elevated white blood cell count, unspecified Status: Acute Assessment and Plan: Markedly improved. Likely reactive secondary to surgery. No signs /symptoms to suggest infection and WBC was normal on admission. (5) custodial (current) use of anticoagulants: Code(s): Z79.01 - custodial (current) use of anticoagulants Status: Chronic Assessment and Plan: Patient on Eliquis due to history of atrial fibrillation. Eliquis has been held perioperatively and will be resumed per general surgery recommendations. (6) CHF (congestive heart failure): Code(s): I50.9 - Heart failure, unspecified Status: Chronic Assessment and Plan: Patient with history of CHF. No prior echo for review. CXR shows mild pulmonary edema, however patient appears clinically compensated. Continue Entresto and metoprolol (7) Coronary artery disease: Code(s): I25.10 - Atherosclerotic heart disease of [place] coronary artery without angina pectoris Status: Acute Assessment and Plan: Patient is established with ceramics engineer, Dr. Seals at [facility]. She was evaluated by her ceramics engineer preoperatively and was informed she is stable from a cardiac perspective. (8) Atrial fibrillation: Code(s): I48.91 - Unspecified atrial fibrillation Status: Acute Assessment and Plan: Patient with history of atrial fibrillation, maintained on amiodarone, metoprolol, and Eliquis for stroke prophylaxis. Rate is controlled. Continue amiodarone and metoprolol. As above, Eliquis on hold perioperatively. (9) Diabetes: Code(s): E11.9 - Type 2 diabetes mellitus without complications Status: Acute Assessment and Plan: Diet controlled. Patient is not on insulin or oral hypoglycemic agents. Blood sugars have been stable during admission. A1c is 5.7. No need for further monitoring during admission. Subjective Date/time seen: 08/11/22 13:28 Interval history: Date of service: 08/11/2022 Hawk Hgaen is a 66 year old female? with a history of coronary artery disease, s/p CABG, CHF, CVA, atrial fibrillation on chronic anticoagulation, recent right proximal humerus fracture,? type 2 diabetes mellitus, and recent rectal bleeding secondary to inflammatory sigmoid polyps who is now s/p laparoscopic sigmoidectomy being seen for medical management. She is feeling much improved and plans to return [place]
== END 2022-08-11 15:42 | disposition home health service (06) | DRG 330 ==
LOC: ANHIMU 21:01 → ANH3MEDSUR 08-09 12:41
PROVIDERS: Anesthesiology; Physician Assistant; Admitting Provider Surgery; PCP Physician Assistant; Visit Provider Surgery
PROC: 0D1E4Z4 Bypass Large Intestine to Cutaneous, Percutaneous Endoscopic Approach (ICD-10-PCS; principal; 2022-08-07 07:30)
PROC: 0DTN0ZZ Resection of Sigmoid Colon, Open Approach (ICD-10-PCS; 2022-08-07 07:30)
DX: K51.411 Inflammatory polyps of colon with rectal bleeding (principal); D62 Acute posthemorrhagic anemia; I42.9 Cardiomyopathy, unspecified; I48.20 Chronic atrial fibrillation, unspecified; E86.1 Hypovolemia; I95.2 Hypotension due to drugs; T41.205A Adverse effect of unspecified general anesthetics, initial encounter; D72.829 Elevated white blood cell count, unspecified; E86.0 Dehydration; E11.9 Type 2 diabetes mellitus without complications; I25.10 Atherosclerotic heart disease of native coronary artery without angina pectoris; I50.9 Heart failure, unspecified; I25.2 Old myocardial infarction; I69.320 Aphasia following cerebral infarction; J44.9 Chronic obstructive pulmonary disease, unspecified; Z79.01 Long term (current) use of anticoagulants; Z90.49 Acquired absence of other specified parts of digestive tract; Z95.810 Presence of automatic (implantable) cardiac defibrillator; Z95.1 Presence of aortocoronary bypass graft; Z28.21 Immunization not carried out because of patient refusal; Z87.891 Personal history of nicotine dependence
CPT/HCPCS: 36415; 36430; 80048; 80053; 82040; 82948; 83036; 85014; 85018; 85027; 85610; 88307; 97161; 97166; A9270; C1713; C1729; C1751; J0171; J0690; J1100; J1165; J1170; J1650; J1885; J1940; J2250; J2270; J2370; J2405; J2704; J2710; J3010; J7050; J7120; P9016

== ENCOUNTER 2022-09-07 08:50 | Outpatient (CLI) | payer MEDICARE, OTHER, SELFPAY ==
[2022-09-07 10:07] LABS: Basophils Absolute Auto 0.1 K/mm3 (0.0-0.1); Basophils Percent Auto 0.8 % (0.2-1.2); Eosinophils Absolute Auto 0.2 K/mm3 (0-0.3); Eosinophils Percent Auto 2.3 % (0-4.4); Hematocrit 38.3 % (37.0-47.0); Hemoglobin 11.1 g/dL (12.0-15.0); Immature Granulocyte Absolute 0.02 K/mm3 (0.00-0.031); Immature Granulocyte Percent A 0.3 % (0-0.5); Lymphocytes Absolute Auto 1.18 K/mm3 (0.9-3.2); Lymphocytes Percent Auto 16.1 % (18.3-44.2); Mean Corpuscular Hemoglobin 23.6 pg (26-34); Mean Corpuscular Volume 81.5 fl (80-100); Mean Platelet Volume 11.2 fl (7.4-10.4); Monocytes Absolute Auto 0.6 K/mm3 (0.1-0.6); Monocytes Percent Auto 8.3 % (2.6-8.5); Neutrophils Absolute Auto 5.3 K/mm3 (1.3-6.7); Neutrophils Percent Auto 72.2 % (45.5-73.1); Platelet Count Result 221 k/mm3 (150-375); Red Cell Distribution Width 25.2 % (11.5-14.5); White Blood Count 7.3 K/mm3 (4.5-10.0)
[2022-09-07 10:09] LABS: Anion Gap 4 mmol/L (8-16); Blood Urea Nitrogen 13 mg/dL (7-17); Calcium 8.5 mg/dL (8.4-10.2); Carbon Dioxide 27 mmol/L (22-30); Chloride 106 mmol/L (98-107); Estimated Glomerular Filt Rate > 60; Glucose 93 mg/dL (65-110); Potassium 3.9 mmol/L (3.4-5.0); Sodium 137 mmol/L (137-145)
[2022-09-07 10:10] LABS: CRP 0.8 mg/dL (<1.0)
[2022-09-07 11:01] LABS: Erythrocyte Sedimentation Rate 12 mm/hr (0-20)
[2022-09-07 13:14] LABS: Platelet Estimate Adequate (Adequate)
[2022-09-07 13:15] LABS: Anisocytosis 1+ (NORMAL); Hypochromasia 1+ (NORMAL)
[2022-09-07 14:22] LABS: Schistocytes Rare (NORMAL)
[2022-09-07 14:23] LABS: Ovalocytes 1+ (NORMAL)
== END 2022-09-07 08:51 | disposition home or self-care (01) ==
PROVIDERS: PCP Physician Assistant; Referring Provider Nurse Practitioner; Visit Provider Surgery
DX: Z86.39 Personal history of other endocrine, nutritional and metabolic disease (principal); D62 Acute posthemorrhagic anemia; K51.90 Ulcerative colitis, unspecified, without complications
CPT/HCPCS: 36415; 80048; 85025; 85652; 86140